=== PATIENT | male | born 1990 | race Asian ===

== ENCOUNTER 2017-04-01 00:38 | Emergency (ER) | payer OTHER ==
[2017-04-01] MEDS ORDERED: SODIUM CHLORIDE 1,000 ML IV STA (01:15)
[2017-04-01] MEDS ORDERED: ONDANSETRON 4 MG/2 ML VIAL IVPUSH ONE (01:16)
[2017-04-01] MEDS ORDERED: morphine CARPU-JECT 4 MG/1 ML DISP.SYRIN IVPUSH ONE (01:16)
[2017-04-01 01:25] VITALS: BP 138/87; PULSE 77; TEMP 98.3; BMI 25.1
[2017-04-01] MEDS ORDERED: morphine CARPU-JECT 10 MG/1 ML DISP.SYRIN ONE (01:29)
[2017-04-01 01:48] LABS: BASOPHIL 0.6 % (0-2.0); EOSINOPHIL 1.7 % (0-4.5); MCH 28.3 pg (25.7-33.7); MEAN PLT VOLUME 10.1 fl (7.5-11.1); NEUTROPHILS 50.9 % (42.8-82.8); PLATELET COUNT 246 K/MM3 (134-434); RDW 13.2 % (11.9-15.9); WHITE BLOOD COUNT 7.3 K/mm3 (4.0-10.0)
--- NOTE | 2017-04-01 02:04 | PDOC ---
History of Present Illness - General Chief Complaint: Pain Stated Complaint: LFT SIDE ABD PAIN Time Seen by Provider: 04/01/17 00:59 History Source: Patient, Family Exam Limitations: No Limitations - History of Present Illness Travel History: No Initial Comments: 04/01/17 01:58 26yo Male patient with no significant past medical history presents to ED c/o LLQ abd pain that comes and goes for past 2 months, but has been more persistent today. Patient denies n/v/d, fever, dysuria, hematuria, testicular pain/swelling, back pain, or any other complaints at this time. Associated h/a. Timing/Duration: reports: constant, getting worse Quality: reports: moderate Abdominal Pain Onset Location: reports: LLQ Pain Radiation: reports: no radiation Activities at Onset: denies: none, exertion, emotional upset, rest, sleep, no specific activity, eating, working, sexual intercourse, other Treatment Prior to Arrive: worse with: analgesics, antacids, cold pack, heat, laxative, enema, other Aggravating Factors: worse with: None, Defecation, Eating, Emotional upset, Exertion, [place], Movement, Voiding, Change in position Alleviating Factors: worse with: None, Belching, Shallow Breathing, Defecation, Eating, Holding Breath, Passing Gas, Change in Position, Rest, Voiding, Vomiting Past History - Travel Traveled outside of the country in the last 30 days: No Close contact w/someone who was outside of country & ill: No - Past Medical History Allergies/Adverse Reactions: Allergies Allergy/AdvReac Type Severity Reaction Status Date / Time No Known Allergies Allergy Verified 06/14/16 23:15 Home Medications: Ambulatory Orders Ciprofloxacin HCl [Cipro] 500 mg PO BID #20 tablet 04/01/17 Metronidazole [Flagyl -] 500 mg PO BID #20 tablet 04/01/17 Oxycodone HCl/Acetaminophen [Endocet 5-325 Tablet] 1 each PO Q6H PRN #12 tablet MDD 4 tabs 04/01/17 - Psycho/Social/Smoking Cessation Hx Anxiety: Yes Suicidal Ideation: No Smoking History: Never smoked Have you smoked in the past 12 months: No Information on smoking cessation initiated: No 'Breaking Loose' booklet given: 09/22/13 Hx Alcohol Use: No Drug/Substance Use Hx: No Substance Use Type: None Hx Substance Use Treatment: No Abd/GI Specific PMHX - Complaint Specific PMHX Colitis: No Diverticulitis: No Gall Bladder Disease: No GERD: No Hepatitis: No Irritable Bowel Synd (IBS): No Pancreatitis: No GI Ulcer Disease: No Review of Systems - Review of Systems Able to Perform ROS?: Yes Is the patient limited Italian proficient: No Constitutional: No: Chills, Fever ABD/GI: Yes: Abdominal cramping (LLQ). No: Diarrhea, Nausea, Poor Appetite, Poor Fluid Intake, Vomiting : No: Burning, Dysuria, Hematuria, Testicular Swelling, Testicular Pain Musculoskeletal: No: Back Pain Integumentary: No: Bruising, Erythema, Sweating Neurological: Yes: Headache. No: Seizure, Unsteady Gait, Dizziness All Other Systems: Reviewed and Negative *Physical Exam - Vital Signs Last Vital Signs Temp Pulse Resp BP Pulse Ox 98.3 F 77 18 138/87 98 04/01/17 00:55 04/01/17 00:55 04/01/17 00:55 04/01/17 00:55 04/01/17 00:55 - Physical Exam General Appearance: Yes: Nourished, Appropriately Dressed. No: Apparent Distress, Mild Distress, Moderate Distress, Severe Distress Respiratory/Chest: positive: Lungs Clear, Normal Breath Sounds. negative: Chest Tender, Respiratory Distress, Accessory Muscle Use, Labored Respiration, Rapid RR, Rhonchi, Stridor, Wheezing Cardiovascular: positive: Regular Rhythm, Regular Rate Gastrointestinal/Abdominal: positive: Normal Bowel Sounds, Soft, Guarding ( Involuntary guarding on deep palpation to mid abd.), Tenderness. negative: Distended, Rebound Musculoskeletal: positive: Normal Inspection. negative: CVA Tenderness Extremity: positive: Normal Capillary Refill, Normal Inspection, Normal Range of Motion. negative: Pedal Edema, Swelling, Calf Tenderness, Erythema, Inflammation Integumentary: positive: Normal Color, Dry, Warm Neurologic: positive: lorry weigher II-XII NML intact, Fully Oriented, Alert, Normal Mood/ Affect, Normal Response, Motor Strength /5 ED Treatment Course - LABORATORY CBC & Chemistry Diagram: 04/01/17 01:43 04/01/17 01:43 - ADDITIONAL ORDERS Additional order review: 04/01/17 01:43 RBC 5.51 MCV 81.0 MCHC 35.0 RDW 13.2 MPV 10.1 D Neutrophils % 50.9 Lymphocytes % 41.3 H Monocytes % 5.5 Eosinophils % 1.7 Basophils % 0.6 - RADIOLOGY Radiology Studies Ordered: Category Date Time Status ABDOMEN & PELVIS CT WITH CONTR [CT] Stat CT Scan 04/01/17 01:15 Ordered - Medications Given in the ED: ED Medications Discontinued Medications Generic Name Dose Route Start Last Admin Trade Name Freq PRN Reason Stop Dose Admin Morphine Sulfate 4 mg 04/01/17 01:16 04/01/17 01:43 Morphine Injection - IVPUSH 04/01/17 01:17 4 mg ONCE ONE Administration Ondansetron HCl 4 mg 04/01/17 01:16 04/01/17 01:43 Zofran Injection IVPUSH 04/01/17 01:17 4 mg ONCE ONE Administration *DC/Admit/Observation/Transfer Diagnosis at time of Disposition: Diverticulitis Qualifiers: Diverticulitis site: unspecified part of intestinal tract Diverticulitis bleeding: without bleeding Diverticulitis complication: without perforation or abscess Qualified Code(s): K57.92 - Diverticulitis of intestine, part unspecified, without perforation or abscess without bleeding - Discharge Dispostion Disposition: HOME Condition at time of disposition: Stable Admit: No - Prescriptions Prescriptions: Ciprofloxacin HCl [Cipro] 500 mg PO BID #20 tablet Oxycodone HCl/Acetaminophen [Endocet 5-325 Tablet] 1 each PO Q6H PRN #12 tablet MDD 4 tabs PRN Reason: Severe Pain Metronidazole [Flagyl -] 500 mg PO BID #20 tablet - Referrals Referrals: Bruce Navarro MD [Primary Care Provider] - Brenda Arzola MD [Staff Physician] - - Patient Instructions Printed Discharge Instructions: DI for Diverticulitis Additional Instructions: Follow up with Dr. Arzola (Gastroenterology). Call to schedule appointment. Take medications as prescribed. Do not drive, drink alcohol, or operate heavy machinery while taking Endocet. Avoid Alcohol, fruits or vegetables with seeds, nuts, or foods with seeds. Return if symptoms worsen or any concerns for further evaluation. Print Language: SLOVAK
[2017-04-01 02:14] LABS: ALBUMIN 4.1 g/dl (3.4-5.0); AMYLASE 57 U/L (25-115); ANION GAP 7 (8-16); BILIRUBIN,TOTAL 0.4 mg/dL (0.2-1.0); CALCIUM 9.5 mg/dL (8.5-10.1); CO2 31 mmol/L (21-32); CREATININE 0.9 mg/dL (0.7-1.3); GLUCOSE,RANDOM 107 mg/dL (74-106); SGOT/AST 23 U/L (15-37); SGPT/ALT 40 U/L (12-78); TOT PROT 7.3 g/dl (6.4-8.2)
[2017-04-01 02:15] LABS: ALK PHOS 81 U/L (45-117)
[2017-04-01 03:02] LABS: URINE APPEARANCE SLCLOUDY; URINE BILIRUBIN NEGATIVE (NEGATIVE); URINE BLOOD NEGATIVE (NEGATIVE); URINE COLOR YELLOW; URINE GLUCOSE (UA) NEGATIVE (NEGATIVE); URINE KETONE NEGATIVE (NEGATIVE); URINE LEUK ESTERASE NEGATIVE (NEGATIVE); URINE NITRITE NEGATIVE (NEGATIVE); URINE PROTEIN NEGATIVE (NEGATIVE); URINE UROBILINOGEN NEGATIVE mg/dL (0.2-1.0)
[2017-04-01] MEDS ORDERED: metroNIDAZOLE 250 MG TABLET PO ONE (04:09)
[2017-04-01] MEDS ORDERED: LEVOFLOXACIN 750 MG TABLET PO ONE (04:11)
[2017-04-01] MEDS ORDERED: LEVOFLOXACIN 250 MG TABLET (FP) ONE (04:15)
[2017-04-01] MEDS ORDERED: LEVOFLOXACIN 500 MG TABLET (FP) ONE (04:15)
[2017-04-01] MEDS ORDERED: metroNIDAZOLE 250 MG TABLET ONE (04:15)
[2017-04-01] MEDS ORDERED: LEVOFLOXACIN 750 MG TABLET PO SCH (10:00)
== END 2017-04-01 04:26 | disposition home or self-care (01) ==
LOC: JER 00:38
PROC: 3E033NZ Introduction of Analgesics, Hypnotics, Sedatives into Peripheral Vein, Percutaneous Approach (ICD-10-PCS; principal; 2017-04-01)
PROC: 3E033GC Introduction of Other Therapeutic Substance into Peripheral Vein, Percutaneous Approach (ICD-10-PCS; 2017-04-01)
DX: K57.92 Diverticulitis of intestine, part unspecified, without perforation or abscess without bleeding (principal)
CPT/HCPCS: 36415; 74177-TC; 80053; 81003; 82150; 83690; 85025; 99282-25

== ENCOUNTER 2018-07-23 02:04 | Inpatient (IN) | payer OTHER ==
--- NOTE | 2018-07-23 02:53 | PDOC ---
History of Present Illness <Minnie Realkenny - Last Filed: 07/23/18 06:07> - General History Source: Patient Exam Limitations: No Limitations - History of Present Illness Initial Comments: 07/23/18 03:02 27 year old male with no PMH presented to ED for rash to left foot, right big toe, right thumb x3 days. Pt denied fever, chills, nausea, vomiting, abdominal pain, chest pain, shortness of breath, palpitations. Pt was seen by his PCP x2 days ago, was told it was a viral infection, was prescribed Keflex 500 mg BID and to take Tylenol for pain. Pt last took Tylenol 500 mg x2 hours ago, without relief of pain. Pt denied travel out of the country. PCP: Dr. Snow <Kacy Chin - Last Filed: 07/23/18 07:02> - General Chief Complaint: Pain Stated Complaint: PAIN Time Seen by Provider: 07/23/18 02:53 Past History <Lynda Realsidra Mclean - Last Filed: 07/23/18 06:07> - Past Medical History CVA: No COPD: No DVT: No Dementia: No Diabetes: No - Surgical History Cholecystectomy: No - Suicide/Smoking/Psychosocial Hx Smoking History: Never smoked Have you smoked in the past 12 months: No Information on smoking cessation initiated: No 'Breaking Loose' booklet given: 09/22/13 Hx Alcohol Use: No Drug/Substance Use Hx: No Substance Use Type: None Hx Substance Use Treatment: No <Kacy Chin - Last Filed: 07/23/18 07:02> - Past Medical History Allergies/Adverse Reactions: Allergies Allergy/AdvReac Type Severity Reaction Status Date / Time No Known Allergies Allergy Verified 06/14/16 23:15 Home Medications: Ambulatory Orders Amoxicillin - [Amoxicillin 500mg Capsule -] 500 mg PO TID 07/23/18 Cephalexin [Keflex] 500 mg PO BID 07/23/18 Ibuprofen 800 mg PO PRN 07/23/18 Naproxen 500 mg PO BID 07/23/18 Review of Systems - Review of Systems Able to Perform ROS?: Yes Comments:: 07/23/18 03:03 General: denied fever, chills, night sweats, generalized weakness. HEENT: denied sore throat, rhinorrhea, ear pain. Heart: denied chest pain, palpitations, syncope, lower extremity swelling, diaphoresis. Respiratory: denied shortness of breath, cough, sputum production, hemoptysis. Abdomen: denied abdominal pain, nausea, vomiting, diarrhea, constipation, blood in stool. : denied dysuria, increased urinary frequency, hematuria, urinary incontinence , flank pain. Back: denied back pain. Musculoskeletal: denied joint pain, muscle pain, joint swelling. Neurological: denied headache, dizziness, numbness, tingling, weakness. Skin: admitted to [facility]. <Kacy Chin - Last Filed: 07/23/18 07:02> *Physical Exam - Vital Signs Last Vital Signs Temp Pulse Resp BP Pulse Ox 98.2 F 65 18 129/80 99 07/23/18 03:00 07/23/18 03:00 07/23/18 03:00 07/23/18 03:00 07/23/18 03:00 <RealMinnie Realkayceelaureen - Last Filed: 07/23/18 06:07> - Vital Signs Last Vital Signs Temp Pulse Resp BP Pulse Ox 98.2 F 65 18 129/80 99 07/23/18 02:22 07/23/18 02:22 07/23/18 02:22 07/23/18 02:22 07/23/18 02:22 - Physical Exam Comments: 07/23/18 03:04 Constitutional: Well-nourished, Well-developed, appearing stated age. HEENT: head is normocephalic, atraumatic. EOMI. PERRLA. Neck: supple. Full ROM. Heart: regular rhythm. no murmurs, rubs or gallops. Lungs: clear to auscultation bilaterally. no crackles, rhonchi or wheezing. no stridor. Abdomen: soft, nontender. normal bowel sounds. no rebound, guarding, masses. Extremities: Peripheral pulses intact. No lower extremity edema. Neurological: CN 2-12 grossly intact. Moves all four extremities. Psych: awake, alert, oriented x3. Follows commands. Answers questions appropriately. Skin: 8 cm ulcer with purulent material, minimal surrounding erythema to left foot. <1 cm area of dryness to right big toe. 1 cm wart like lesion to right thumb. <Kacy Chin - Last Filed: 07/23/18 07:02> Moderate Sedation - Procedure Monitoring Vital Signs: Procedure Monitoring Vital Signs Temperature 98.2 F 07/23/18 03:00 Pulse Rate 65 07/23/18 03:00 Respiratory Rate 18 07/23/18 03:00 Blood Pressure 129/80 07/23/18 03:00 O2 Sat by Pulse Oximetry (%) 99 07/23/18 03:00 <RealMinnie Vinay - Last Filed: 07/23/18 06:07> - Procedure Monitoring Vital Signs: Procedure Monitoring Vital Signs Temperature 98.2 F 07/23/18 02:22 Pulse Rate 65 07/23/18 02:22 Respiratory Rate 18 07/23/18 02:22 Blood Pressure 129/80 07/23/18 02:22 O2 Sat by Pulse Oximetry (%) 99 07/23/18 02:22 <Kacy Chin - Last Filed: 07/23/18 07:02> ED Treatment Course - LABORATORY CBC & Chemistry Diagram: 07/23/18 04:19 07/23/18 04:19 - ADDITIONAL ORDERS Additional order review: Laboratory Results 07/23/18 07/23/18 07/23/18 04:19 04:19 04:19 PT with INR 11.00 INR 0.93 PTT (Actin FS) 28.9 Sodium 139 Potassium 4.2 Chloride 104 Carbon Dioxide 27 Anion Gap 8 BUN 14 Creatinine 0.9 Creat Clearance w eGFR > 60 Random Glucose 96 Lactic Acid 1.5 Calcium 8.9 Total Bilirubin 0.4 AST 38 H ALT 67 H Alkaline Phosphatase 76 C-Reactive Protein < 0.3 Total Protein 7.4 Albumin 4.0 07/23/18 04:19 RBC 5.71 H MCV 80.8 MCHC 34.3 RDW 13.3 MPV 10.1 Neutrophils % 47.8 Lymphocytes % 41.7 H Monocytes % 7.8 Eosinophils % 1.9 Basophils % 0.8 - Medications Given in the ED: ED Medications Discontinued Medications Generic Name Dose Route Start Last Admin Trade Name Freq PRN Reason Stop Dose Admin Sodium Chloride 1,000 mls @ 1,000 mls/hr 07/23/18 03:56 07/23/18 04:23 Normal Saline - IV 07/23/18 04:55 1,000 mls/hr ASDIR STA Administration Morphine Sulfate 2 mg 07/23/18 05:25 07/23/18 05:38 Morphine Injection - IVPUSH 07/23/18 05:26 2 mg ONCE ONE Administration <Minnie Real - Last Filed: 07/23/18 06:07> - LABORATORY CBC & Chemistry Diagram: 07/23/18 04:19 07/23/18 04:19 <ElsyKacy - Last Filed: 07/23/18 07:02> Medical Decision Making - Medical Decision Making 07/23/18 03:06 27 year old male with no PMH presented to ED for rash to left foot, right thumb , right big toe. Initial Vital Signs Temp Pulse Resp BP Pulse Ox 98.2 F 65 18 129/80 99 07/23/18 02:22 07/23/18 02:22 07/23/18 02:22 07/23/18 02:22 07/23/18 02:22 Afebrile. No tachycardia. No tachypnea. No hypotension. No hypoxia on room air. Imaging ordered: XR left foot Labs ordered: CBC, CMP, blood cultures, lactate, ESR, CRP Medications ordered: morphine 4 mg EKG performed at 0619: rate 60, regular rhythm, normal axis, normal intervals, flipped T III, aVF. Pt failed outpatient antibiotics. 07/23/18 05:18 CBC WBC 6.1 K/mm3 (4.0-10.0) 07/23/18 04:19 RBC 5.71 M/mm3 (4.00-5.60) H 07/23/18 04:19 Hgb 15.8 GM/dL (11.7-16.9) 07/23/18 04:19 Hct 46.2 % (35.4-49) 07/23/18 04:19 MCV 80.8 fl (80-96) 07/23/18 04:19 MCH 27.7 pg (25.7-33.7) 07/23/18 04:19 MCHC 34.3 g/dl (32.0-35.9) 07/23/18 04:19 RDW 13.3 % (11.9-15.9) 07/23/18 04:19 Plt Count 238 K/MM3 (134-434) 07/23/18 04:19 MPV 10.1 fl (7.5-11.1) 07/23/18 04:19 Absolute Neuts (auto) 2.9 K/mm3 (1.5-8.0) 07/23/18 04:19 Neutrophils % 47.8 % (42.8-82.8) 07/23/18 04:19 Lymphocytes % 41.7 % (8-40) H 07/23/18 04:19 Monocytes % 7.8 % (3.8-10.2) 07/23/18 04:19 Eosinophils % 1.9 % (0-4.5) 07/23/18 04:19 Basophils % 0.8 % (0-2.0) 07/23/18 04:19 Nucleated RBC % 0 % (0-0) 07/23/18 04:19 CMP Sodium 139 mmol/L (136-145) 07/23/18 04:19 Potassium 4.2 mmol/L (3.5-5.1) 07/23/18 04:19 Chloride 104 mmol/L (98-107) 07/23/18 04:19 Carbon Dioxide 27 mmol/L (21-32) 07/23/18 04:19 Anion Gap 8 MMOL/L (8-16) 07/23/18 04:19 BUN 14 mg/dL (7-18) 07/23/18 04:19 Creatinine 0.9 mg/dL (0.55-1.3) 07/23/18 04:19 Creat Clearance w eGFR > 60 (>60) 07/23/18 04:19 Random Glucose 96 mg/dL (74-106) 07/23/18 04:19 Calcium 8.9 mg/dL (8.5-10.1) 07/23/18 04:19 Total Bilirubin 0.4 mg/dL (0.2-1) 07/23/18 04:19 AST 38 U/L (15-37) H 07/23/18 04:19 ALT 67 U/L (13-61) H 07/23/18 04:19 Alkaline Phosphatase 76 U/L (45-117) 07/23/18 04:19 C-Reactive Protein < 0.3 MG/DL (0.00-0.3) 07/23/18 04:19 Total Protein 7.4 g/dl (6.4-8.2) 07/23/18 04:19 Albumin 4.0 g/dl (3.4-5.0) 07/23/18 04:19 07/23/18 05:22 Vancomycin ordered. Ancef ordered. Pt to be admitted for celluliis failing out patient antibiotics. CXR: no focal infiltrate. sharp costophrenic angles. no pneumothorax. - Pending official read Keft foot XR: no obvious fractures, no subQ air. - Pending official read 07/23/18 06:12 Pt seen and evaluated by hospitalist team, recommended ED observation with ID consult. 07/23/18 07:01 <Kacy Chin - Last Filed: 07/23/18 07:02> *DC/Admit/Observation/Transfer <Minnie Real - Last Filed: 07/23/18 06:07> - Discharge Dispostion Decision to Admit order: Yes <Kacy Chin - Last Filed: 07/23/18 07:02> Diagnosis at time of Disposition: Callus of foot - Discharge Dispostion Condition at time of disposition: Stable - Referrals Referrals: ON STAFF,NOT [Primary Care Provider] -
[2018-07-23] MEDS ORDERED: SODIUM CHLORIDE 1,000 ML IV STA (03:56)
[2018-07-23 04:50] LABS: BASO % 0.8 % (0-2.0); EOS % 1.9 % (0-4.5); HEMATOCRIT 46.2 % (35.4-49); HEMOGLOBIN 15.8 GM/dL (11.7-16.9); LYMPH % 41.7 % (8-40); MCH 27.7 pg (25.7-33.7); MCHC 34.3 g/dl (32.0-35.9); MEAN CELL VOLUME 80.8 fl (80-96); MEAN PLT VOLUME 10.1 fl (7.5-11.1); MONO % 7.8 % (3.8-10.2); NEUT % 47.8 % (42.8-82.8); PLATELET COUNT 238 K/MM3 (134-434); RBC 5.71 M/mm3 (4.00-5.60); RDW 13.3 % (11.9-15.9); WHITE BLOOD COUNT 6.1 K/mm3 (4.0-10.0)
[2018-07-23 05:04] LABS: INR 0.93 (0.83-1.09)
[2018-07-23 05:07] LABS: ACTIVATED PTT 28.9 SECONDS (25.2-36.5)
[2018-07-23 05:16] LABS: ALK PHOS 76 U/L (45-117); ANION GAP 8 MMOL/L (8-16); BILIRUBIN,TOTAL 0.4 mg/dL (0.2-1); BLOOD UREA NITROGEN 14 mg/dL (7-18); CALCIUM 8.9 mg/dL (8.5-10.1); CHLORIDE 104 mmol/L (98-107); CO2 27 mmol/L (21-32); CREATININE 0.9 mg/dL (0.55-1.3); GLUCOSE,RANDOM 96 mg/dL (74-106); POTASSIUM 4.2 mmol/L (3.5-5.1); SGOT/AST 38 U/L (15-37); SGPT/ALT 67 U/L (13-61); SODIUM 139 mmol/L (136-145); TOT PROT 7.4 g/dl (6.4-8.2)
[2018-07-23] MEDS ORDERED: VANCOMYCIN 1,000 MG in DEXTROSE 5%-WATER - 250 ML IVPB ONE (05:22)
[2018-07-23] MEDS ORDERED: morphine CARPU-JECT 4 MG/1 ML DISP.SYRIN IVPUSH ONE (05:25)
[2018-07-23] MEDS ORDERED: VANCOMYCIN 1 GRAM (PRE-DOCKED) 1,000 MG/250 ML BAG IVPB ONE (05:35)
[2018-07-23] MEDS ORDERED: MORPHINE SULFATE 2 MG/ML VIAL ONE ×2 (05:35→09:22)
[2018-07-23] MEDS ORDERED: CEFAZOLIN 1 GM/D5W 1 GM/50 ML BAG IVPB ONE (05:48)
--- NOTE | 2018-07-23 05:54 | PDOC ---
Attending Attestation - Resident Resident Name: ElsyKacy - ED Attending Attestation I have performed the following: I have examined & evaluated the patient, The case was reviewed & discussed with the resident, I agree w/resident's findings & plan - HPI HPI: 07/23/18 05:50 Patient is a 27 year old male with no significant past medical history who presents to the ED with complaints of left foot callus, increased pain x 3 days , right great toe pain and right thumb lesions. Patient reports experiencing worsening dry skin/callus formation on the left side of his left foot as well as his big toe and right thumb that he states has gradually increased over time. He reports experiencing subjective fever and chills as well as being unable to ambulate secondary to left foot pain. Patient reports going to physician x2 days ago, and was prescribed antibiotics - Keflex BID x 3 days, not working. As per patient's father, patient was brought into the ED for further evaluation after medication did not appear to alleviate symptoms. Denies chest pain, Sob. Denies nausea, vomiting. Denies contact with sick individuals, out of state travelling. Denies any other symptoms. Allergies: None Social history: Lives alone. No smoking. No alcohol. No illicit drugs. Surgical history: None PMD: Not on staff. Dr Snow - Physicial Exam PE: 07/23/18 05:52 NAD, well appearing, MMM, nl conjunctiva, anicteric; neck supple. lungs clear, RRR, abdomen soft nontender. PERRY x4, no focal neuro deficits. No peripheral edema. LEft medial distal foot dry tender skin with pealing large calluses - underlying area of dry ulceration, mild erythema; Tip of right great toe as well as tip of right thumb dry tender skin with white hard callus material, WWP - Medical Decision Making 07/23/18 05:53 hpi as documented vitals wnl. no fever labs and lytes normal. inflammatory markers/lactic also normal. failing oral abx - keflex coursse IV ancef and vancomycin for mrsa coverage. admit for IV abx of infected callus wounds/unable to ambulate and unclear origin.
--- NOTE | 2018-07-23 06:37 | PN ---
Progress Note (short form) - Note Progress Note: Patient will be placed on ED obs; may come to medicine if eventually deemed needed. Briefly, he presents with skin peeling and minor redness around the base of his hallux. He has no white count, no fever, no tachycardia. Only has been on abx for 2 days as OP and doesn't appear to be frankly infected that it would require abx. Furthermore, the CRP is negative. He will remain on ED obs. I recommended that podiatry should be consulted as he has a large callus that is peeling; he may need topical antifungal, but I will defer to the current treating provider. If despite no WBC, negative CRP, no fever, etc. concern of clinically significant cellulitis is persistent ID can be called, but clinically this does not appear to be a severe infection at this juncture. I spoke to Dr. Real and the patient with the resident team present. Visit type - Emergency Visit Emergency Visit: No - New Patient This patient is new to me today: Yes Date on this admission: 07/25/18 - Critical Care Critical Care patient: No
[2018-07-23] MEDS ORDERED: CEFAZOLIN 1 GM/D5W 1 GM/50 ML BAG ONE (06:42)
--- NOTE | 2018-07-23 08:54 | PDOC ---
*Physical Exam - Vital Signs Last Vital Signs Temp Pulse Resp BP Pulse Ox 98.4 F 80 17 148/75 99 07/23/18 06:53 07/23/18 06:53 07/23/18 06:53 07/23/18 06:53 07/23/18 06:53 ED Treatment Course - LABORATORY CBC & Chemistry Diagram: 07/23/18 04:19 07/23/18 04:19 - ADDITIONAL ORDERS Additional order review: Laboratory Results 07/23/18 07/23/18 07/23/18 04:19 04:19 04:19 PT with INR 11.00 INR 0.93 PTT (Actin FS) 28.9 Sodium Potassium Chloride Carbon Dioxide Anion Gap BUN Creatinine Creat Clearance w eGFR Random Glucose Lactic Acid 1.5 Calcium Total Bilirubin AST ALT Alkaline Phosphatase C-Reactive Protein Total Protein Albumin Blood Type B POSITIVE Antibody Screen Negative 07/23/18 04:19 PT with INR INR PTT (Actin FS) Sodium 139 Potassium 4.2 Chloride 104 Carbon Dioxide 27 Anion Gap 8 BUN 14 Creatinine 0.9 Creat Clearance w eGFR > 60 Random Glucose 96 Lactic Acid Calcium 8.9 Total Bilirubin 0.4 AST 38 H ALT 67 H Alkaline Phosphatase 76 C-Reactive Protein < 0.3 Total Protein 7.4 Albumin 4.0 Blood Type Antibody Screen 07/23/18 04:19 RBC 5.71 H MCV 80.8 MCHC 34.3 RDW 13.3 MPV 10.1 Neutrophils % 47.8 Lymphocytes % 41.7 H Monocytes % 7.8 Eosinophils % 1.9 Basophils % 0.8 - Medications Given in the ED: ED Medications Discontinued Medications Generic Name Dose Route Start Last Admin Trade Name Freq PRN Reason Stop Dose Admin Sodium Chloride 1,000 mls @ 1,000 mls/hr 07/23/18 03:56 07/23/18 04:23 Normal Saline - IV 07/23/18 04:55 1,000 mls/hr ASDIR STA Administration Vancomycin HCl 1,000 mg/ 250 mls @ 166.667 mls/hr 07/23/18 05:22 07/23/18 05: 38 Dextrose IVPB 07/23/18 06:51 166.667 mls/hr ONCE ONE Administration Protocol Cefazolin Sodium 1 gm in 50 mls @ 100 mls/hr 07/23/18 05:48 07/23/18 06:46 Ancef 1 Gm Premixed Ivpb - IVPB 07/23/18 06:17 100 mls/hr ONCE ONE Administration Morphine Sulfate 2 mg 07/23/18 05:25 07/23/18 05:38 Morphine Injection - IVPUSH 07/23/18 05:26 2 mg ONCE ONE Administration Medical Decision Making - Medical Decision Making 07/23/18 08:49 I received this patient upon sign out this morning I have contacted Dr. Sandoval, he will come to see this patient I have contacted hospitalist Will are present in the ER to admit *DC/Admit/Observation/Transfer Diagnosis at time of Disposition: Callus of foot - Discharge Dispostion Condition at time of disposition: Stable - Referrals Referrals: Dr. José [Other] ON STAFF,NOT [Primary Care Provider] - - Patient Instructions - Post Discharge Activity
[2018-07-23] MEDS ORDERED: MORPHINE SULFATE 2 MG/ML VIAL IVPUSH ONE (09:04)
[2018-07-23 09:36] LABS: ERYTHROCYTE SEDIMENTATION RATE 2 mm/hr (0-10)
[2018-07-23] MEDS ORDERED: PATIENT'S OWN MEDICATION (NON-FORMULARY) (Ibuprofen [Ibuprofen] 800 MG) PO PRN (09:46)
--- NOTE | 2018-07-23 09:51 | EKG ---
Test Reason : Blood Pressure : / mmHG Vent. Rate : 060 BPM Atrial Rate : 060 BPM P-R Int : 142 ms QRS Dur : 088 ms QT Int : 408 ms P-R-T Axes : 046 010 -17 degrees QTc Int : 408 ms NORMAL SINUS RHYTHM MODERATE VOLTAGE CRITERIA FOR LVH, MAY BE NORMAL VARIANT POSSIBLE INFERIOR INFARCT , AGE UNDETERMINED LATERAL INJURY PATTERN ACUTE VA / STEMI ABNORMAL ECG WHEN COMPARED WITH ECG OF 14-JUN-2016 21:58, VENT. RATE HAS DECREASED BY 36 BPM BORDERLINE CRITERIA FOR INFERIOR INFARCT ARE NOW PRESENT T WAVE INVERSION NOW EVIDENT IN INFERIOR LEADS Confirmed by TELLY JOHN, KERRY ([id number]) on 07/23/2018 9:50:52 AM Referred By: Confirmed By:KERRY VARNER MD
--- NOTE | 2018-07-23 09:51 | EKG ---
Test Reason : Blood Pressure : / mmHG Vent. Rate : 058 BPM Atrial Rate : 058 BPM P-R Int : 148 ms QRS Dur : 088 ms QT Int : 392 ms P-R-T Axes : 038 010 019 degrees QTc Int : 384 ms SINUS BRADYCARDIA OTHERWISE NORMAL ECG WHEN COMPARED WITH ECG OF 23-JUL-2018 06:19, BORDERLINE CRITERIA FOR INFERIOR INFARCT ARE NO LONGER PRESENT ST NO LONGER DEPRESSED IN INFERIOR LEADS T WAVE INVERSION NO LONGER EVIDENT IN INFERIOR LEADS Confirmed by KERRY VARNER MD ([id number]) on 07/23/2018 9:51:19 AM Referred By: Confirmed By:KERRY VARNER MD
--- NOTE | 2018-07-23 10:34 | HP ---
CHIEF COMPLAINT: Left foot wound PCP: Bruce Navarro MD HISTORY OF PRESENT ILLNESS: 27 year old male with no specific PMH presented to the ED with a painful wound to his left foot. He also has a calloused lesion to his right thumbthat appeared 3 days ago. He reports that the lesion on his foot started as a fluid- filled blister that opened yesterday. He went to his PCP yesterday who gave him a prescription for amoxicillin and keflex which he started yesterday. Pain got progressively worse, and he believes he had a fever yesterday. Denies SOB, cough , congestion, palpitations abdominal pain, n/v/d. Upon admission to the ED VSS, labs WNL except for slightly elevated LFTs, foot x -ray negative. He was given a dose of Ancef and vancomycin, morphine for pain and 1 L NS. He report still being in a lot of pain. Recent Travel: No PAST MEDICAL HISTORY: No significant PAST SURGICAL HISTORY: None Social History: [place] nationality, moved to the [place] years ago, one year ago, lives with spouse, works in a [employer] shop Smoking: Never Alcohol: Denies Drugs: Denies Allergies No Known Allergies Allergy (Verified 06/14/16 23:15) HOME MEDICATIONS: Home Medications Medication Instructions Recorded Amoxicillin - [Amoxicillin 500mg 500 mg PO TID 07/23/18 Capsule -] Cephalexin [Keflex] 500 mg PO BID 07/23/18 Ibuprofen 800 mg PO PRN 07/23/18 Naproxen 500 mg PO BID 07/23/18 REVIEW OF SYSTEMS CONSTITUTIONAL: (+) 15 lb weight gain over the past year which he attributes to being newly , subjective fever yesterday. Absent: chills, diaphoresis, generalized weakness, malaise, loss of appetite HEENT: Absent: rhinorrhea, nasal congestion, throat pain, throat swelling, difficulty swallowing, mouth swelling, ear pain, eye pain, visual changes CARDIOVASCULAR: (+) chest pain in the ED, now resolved Absent: chest pain, syncope, palpitations, irregular heart rate, lightheadedness , peripheral edema RESPIRATORY: Absent: cough, shortness of breath, dyspnea with exertion, orthopnea, wheezing, stridor, hemoptysis GASTROINTESTINAL: Absent: abdominal pain, abdominal distension, nausea, vomiting, diarrhea, constipation, melena, hematochezia GENITOURINARY: Absent: dysuria, frequency, urgency, hesitancy, hematuria, flank pain, genital pain MUSCULOSKELETAL: (+) left foot pain Absent: myalgia, arthralgia, joint swelling, back pain, neck pain SKIN: (+) lesion on thumb and left foot Absent: rash, itching, pallor HEMATOLOGIC/IMMUNOLOGIC: Absent: easy bleeding, easy bruising, lymphadenopathy, frequent infections ENDOCRINE: Absent: unexplained weight gain, unexplained weight loss, heat intolerance, cold intolerance NEUROLOGIC: Absent: headache, focal weakness or paresthesias, dizziness, unsteady gait, seizure, mental status changes, bladder or bowel incontinence PSYCHIATRIC: Absent: anxiety, depression, suicidal or homicidal ideation, hallucinations. PHYSICAL EXAMINATION Vital Signs - 24 hr 07/23/18 07/23/18 07/23/18 02:22 03:00 06:53 Temperature 98.2 F 98.2 F 98.4 F Pulse Rate 65 Pulse Rate [ 65 80 Left Radial] Respiratory 18 18 17 Rate Blood Pressure 129/80 Blood Pressure 129/80 148/75 [Left Arm] O2 Sat by Pulse 99 99 99 Oximetry (%) GENERAL: Awake, alert, and fully oriented, in no acute distress. HEAD: Normal with no signs of trauma. EYES: Pupils equal, round and reactive to light, extraocular movements intact, sclera anicteric, conjunctiva clear. No lid lag. EARS, NOSE, THROAT: Nares patent, oropharynx clear without exudates. Moist mucous membranes. NECK: Normal range of motion, supple without lymphadenopathy, JVD, or masses. LUNGS: Breath sounds equal, clear to auscultation bilaterally. No wheezes, and no crackles. No accessory muscle use. HEART: Regular rate and rhythm, normal S1 and S2 without murmur, rub or gallop. ABDOMEN: Soft, nontender, not distended, normoactive bowel sounds, no guarding, no rebound, no masses. No hepatomegaly or splenomegaly. MUSCULOSKELETAL: Normal range of motion at all joints. No bony deformities or tenderness. No CVA tenderness. UPPER EXTREMITIES: 2+ pulses, warm, well-perfused. No cyanosis. No clubbing. No peripheral edema. LOWER EXTREMITIES: LLE > RLE, with tenderness NEUROLOGICAL: No facial droop, tongue midline, normal speech. Normal gait. PSYCHIATRIC: Cooperative. Good eye contact. Appropriate mood and affect. SKIN: (+) Rough, raised, light-colored lesion, with opening to red tissue with macerated edges around the open area over left first metarsal joint. Faint linear streak to medial aspect of LLE. extremely TTP, small, rough, round, white lesion to distal tip of right thumb. Laboratory Results - last 24 hr 07/23/18 07/23/18 07/23/18 04:19 04:19 04:19 WBC 6.1 RBC 5.71 H Hgb 15.8 Hct 46.2 MCV 80.8 MCH 27.7 MCHC 34.3 RDW 13.3 Plt Count 238 MPV 10.1 Absolute Neuts (auto) 2.9 Neutrophils % 47.8 Lymphocytes % 41.7 H Monocytes % 7.8 Eosinophils % 1.9 Basophils % 0.8 Nucleated RBC % 0 ESR 2 PT with INR 11.00 INR 0.93 PTT (Actin FS) 28.9 Sodium 139 Potassium 4.2 Chloride 104 Carbon Dioxide 27 Anion Gap 8 BUN 14 Creatinine 0.9 Creat Clearance w eGFR > 60 Random Glucose 96 Lactic Acid Calcium 8.9 Total Bilirubin 0.4 AST 38 H ALT 67 H Alkaline Phosphatase 76 Creatine Kinase Creatine Kinase Index CK-MB (CK-2) Troponin I C-Reactive Protein < 0.3 Total Protein 7.4 Albumin 4.0 Blood Type Antibody Screen 07/23/18 07/23/18 07/23/18 04:19 04:19 08:02 WBC RBC Hgb Hct MCV MCH MCHC RDW Plt Count MPV Absolute Neuts (auto) Neutrophils % Lymphocytes % Monocytes % Eosinophils % Basophils % Nucleated RBC % ESR PT with INR INR PTT (Actin FS) Sodium Potassium Chloride Carbon Dioxide Anion Gap BUN Creatinine Creat Clearance w eGFR Random Glucose Lactic Acid 1.5 Calcium Total Bilirubin AST ALT Alkaline Phosphatase Creatine Kinase 227 Creatine Kinase Index 1.1 CK-MB (CK-2) 2.6 Troponin I < 0.02 C-Reactive Protein Total Protein Albumin Blood Type B POSITIVE Antibody Screen Negative ASSESSMENT/PLAN: 27 year old male with no specific PMH presented to the ED with a painful wound to his left foot. He was placed on observation for IV antibiotic treatment and ID/podiatry consult. Lesion to left 1st metatarsal joint - Seen by ID specialist Dr. Sandoval - Will start on Zosyn. - Podiatry consult ordered - Pain management - Ibuprophen 600 PRN - Oxycodone 5 mg PRN for severe pain Prophylaxis - OOB FEN - PO intake adequate - Replete as needed - Regular diet Disp: Patient requires further inpatient obersvation Visit type - Emergency Visit Emergency Visit: Yes ED Registration Date: 07/23/18 Care time: The patient presented to the Emergency Department on the above date and was hospitalized for further evaluation of their emergent condition. - New Patient This patient is new to me today: Yes Date on this admission: 07/23/18 - Critical Care Critical Care patient: No
--- NOTE | 2018-07-23 11:17 | CON.ID ---
Consult Consult Specialty:: infectious diseases Referred by:: Linda Reason for Consultation:: swelling and redness of the foot - History of Present Illness Chief Complaint: pain swelling and redness with skin denudation of the foot History of Present Illness: 27 year old male with no specific PMH presented to the ED with a painful wound to his left foot. He also has a calloused lesion to his right thumbthat appeared 3 days ago. He reports that the lesion on his foot started as a fluid- filled blister that opened yesterday. He went to his PCP yesterday who gave him a prescription for amoxicillin and keflex which he started yesterday. Pain got progressively worse, and he believes he had a fever yesterday. Denies SOB, cough , congestion, palpitations abdominal pain, n/v/d. - History Source History Provided By: Patient Limitations to Obtaining History: No Limitations - Past Surgical History Past Surgical History: Yes: None - Alcohol/Substance Use Hx Alcohol Use: No - Smoking History Smoking history: Never smoked Have you smoked in the past 12 months: No Home Medications - Allergies Allergies/Adverse Reactions: Allergies Allergy/AdvReac Type Severity Reaction Status Date / Time No Known Allergies Allergy Verified 06/14/16 23:15 - Home Medications Home Medications: Ambulatory Orders Ibuprofen 800 mg PO PRN 07/23/18 Amox-Tr/K Cl [Augmentin 875-125mg Tablet -] 1 tab PO BID@0800,1730 #20 tablet Ibuprofen [Motrin -] 800 mg PO Q8H PRN tablet 07/25/18 Review of Systems - Review of Systems Constitutional: reports: No Symptoms Eyes: reports: No Symptoms HENT: reports: No Symptoms Neck: reports: No Symptoms Cardiovascular: reports: No Symptoms Respiratory: reports: No Symptoms Gastrointestinal: reports: No Symptoms Genitourinary: reports: No Symptoms Musculoskeletal: reports: Muscle Pain Integumentary: reports: Change in Color, Erythema, Wound Neurological: reports: No Symptoms Endocrine: reports: No Symptoms Hematology/Lymphatic: reports: No Symptoms Psychiatric: reports: No Symptoms Physical Exam Vital Signs: Vital Signs Temperature 98.0 F 07/23/18 11:00 Pulse Rate 60 07/23/18 11:00 Respiratory Rate 18 07/23/18 11:00 Blood Pressure 133/74 07/23/18 11:00 O2 Sat by Pulse Oximetry (%) 98 07/23/18 11:00 Constitutional: Yes: Well Nourished, No Distress, Calm Cardiovascular: Yes: Regular Rate and Rhythm Respiratory: Yes: Regular, CTA Bilaterally Gastrointestinal: Yes: Normal Bowel Sounds, Soft Musculoskeletal: Yes: WNL Extremities: Yes: Erythema (of the foot), Other Neurological: Yes: Alert, Oriented Psychiatric: Yes: Alert, Oriented Labs: CBC, BMP 07/23/18 04:19 07/23/18 04:19 Imaging - Results Chest X-ray: Report Reviewed, Image Reviewed X-ray: Report Reviewed, Image Reviewed Assessment/Plan cellulitis of the foot swelling of the calf pain wound on the rt toe plan vaca start patient on iv abx mri podiatry wound care rest as per the team
[2018-07-23] MEDS ORDERED: IBUPROFEN 400 MG TABLET (FP) PO PRN (12:08)
[2018-07-23] MEDS ORDERED: PIPERACILLIN/TAZOBACTAM 3.375 GM VIAL IVPB ONE ×2 (12:09→17:40)
[2018-07-23] MEDS ORDERED: DEXTROSE 5%-WATER - 50 ML IVPB ONE ×2 (12:09→17:40)
[2018-07-23] MEDS: PIPERACILLIN/TAZOB 3.375 GM 3.375 GM in DEXTROSE 5%-WATER - 50 ML IVPB SCH ×2 (12:26→17:48)
[2018-07-23] MEDS: oxyCODONE HCL 5 MG TABLET PO PRN (13:21)
[2018-07-23 14:11] VITALS: BMI 28.1
[2018-07-24] MEDS ORDERED: PIPERACILLIN/TAZOBACTAM 3.375 GM VIAL IVPB ONE ×4 (01:55→23:24)
[2018-07-24] MEDS ORDERED: DEXTROSE 5%-WATER - 50 ML IVPB ONE ×4 (01:55→23:24)
[2018-07-24] MEDS: PIPERACILLIN/TAZOB 3.375 GM 3.375 GM in DEXTROSE 5%-WATER - 50 ML IVPB SCH ×3 (02:00→17:27)
[2018-07-24 07:52] LABS: HEMATOCRIT 47.6 % (35.4-49); HEMOGLOBIN 15.9 GM/dL (11.7-16.9); MCH 27.2 pg (25.7-33.7); MCHC 33.3 g/dl (32.0-35.9); MEAN CELL VOLUME 81.5 fl (80-96); PLATELET COUNT 237 K/MM3 (134-434); RBC 5.84 M/mm3 (4.00-5.60); RDW 13.3 % (11.9-15.9); WHITE BLOOD COUNT 6.1 K/mm3 (4.0-10.0)
[2018-07-24 08:22] LABS: ANION GAP 9 MMOL/L (8-16); BLOOD UREA NITROGEN 14 mg/dL (7-18); CALCIUM 9.1 mg/dL (8.5-10.1); CHLORIDE 106 mmol/L (98-107); CO2 25 mmol/L (21-32); GLUCOSE,RANDOM 91 mg/dL (74-106); POTASSIUM 4.5 mmol/L (3.5-5.1); SODIUM 139 mmol/L (136-145)
--- NOTE | 2018-07-24 10:31 | CONSULT ---
Consult Consult Specialty:: Podiatry Reason for Consultation:: Wound medial left big toe, +macerated, -drainage today , +localized cellulitis, +lesion on finger right thumb consistent with verrucca - History of Present Illness Chief Complaint: wound left big toe states only present since Saturday. - History Source History Provided By: Patient Limitations to Obtaining History: Language Barrier - Past Surgical History Past Surgical History: Yes: None - Alcohol/Substance Use Hx Alcohol Use: No - Smoking History Smoking history: Never smoked Have you smoked in the past 12 months: No Home Medications - Allergies Allergies/Adverse Reactions: Allergies Allergy/AdvReac Type Severity Reaction Status Date / Time No Known Allergies Allergy Verified 06/14/16 23:15 - Home Medications Home Medications: Ambulatory Orders Ibuprofen 800 mg PO PRN 07/23/18 Physical Exam Vital Signs: Vital Signs Temperature 97.4 F L 07/24/18 06:00 Pulse Rate 56 L 07/24/18 06:00 Respiratory Rate 20 07/24/18 06:00 Blood Pressure 116/73 07/24/18 06:00 O2 Sat by Pulse Oximetry (%) 98 07/24/18 01:00 Extremities: Yes: Other (Wound medial left big toe, +macerated, -drainage today , +localized cellulitis, +lesion on finger right thumb consistent with verrucca) Labs: CBC, BMP 07/24/18 06:00 07/24/18 06:00 Assessment/Plan wound left big toe Betadine dressing change daily. MRI ordered. Will follow.
--- NOTE | 2018-07-24 12:51 | PN ---
Progress Note, Physician History of Present Illness: stable leg improving podiatry note noted - Current Medication List Current Medications: Active Medications Piperacillin Sod/Tazobactam (Sod 3.375 gm/ Dextrose) 50 mls @ 100 mls/hr IVPB Q8H-IV JUSTIN; Protocol Last Admin: 07/24/18 10:21 Dose: 100 mls/hr Ibuprofen (Motrin -) 800 mg PO Q8H PRN PRN Reason: PAIN LEVEL 4 - 6 Oxycodone HCl (Roxicodone -) 5 mg PO Q6H PRN PRN Reason: PAIN LEVEL 6-10 Last Admin: 07/23/18 13:21 Dose: 5 mg - Objective Vital Signs: Vital Signs Temperature 97.4 F L 07/24/18 06:00 Pulse Rate 56 L 07/24/18 06:00 Respiratory Rate 20 07/24/18 06:00 Blood Pressure 116/73 07/24/18 06:00 O2 Sat by Pulse Oximetry (%) 98 07/24/18 01:00 Constitutional: Yes: No Distress, Calm Cardiovascular: Yes: Regular Rate and Rhythm Respiratory: Yes: Regular, CTA Bilaterally Gastrointestinal: Yes: Normal Bowel Sounds, Soft Musculoskeletal: Yes: WNL Extremities: Yes: Other Neurological: Yes: Alert, Oriented Psychiatric: Yes: Alert, Oriented Labs: CBC, BMP 07/24/18 06:00 07/24/18 06:00 INR, PTT INR 0.93 (0.83-1.09) 07/23/18 04:19 - ....Imaging MRI: Report Reviewed, Image Reviewed Assessment/Plan cellulitis of the foot swelling of the calf pain wound on the rt toe plan continue abx mri result noted podiatry wound care rest as per the team
[2018-07-24] MEDS: oxyCODONE HCL 5 MG TABLET PO PRN (15:47)
--- NOTE | 2018-07-24 23:24 | PN ---
Progress Note, Physician History of Present Illness: No new complaints - Current Medication List Current Medications: Active Medications Piperacillin Sod/Tazobactam (Sod 3.375 gm/ Dextrose) 50 mls @ 100 mls/hr IVPB Q8H-IV JUSTIN; Protocol Last Admin: 07/24/18 17:27 Dose: 100 mls/hr Ibuprofen (Motrin -) 800 mg PO Q8H PRN PRN Reason: PAIN LEVEL 4 - 6 Oxycodone HCl (Roxicodone -) 5 mg PO Q6H PRN PRN Reason: PAIN LEVEL 6-10 Last Admin: 07/24/18 15:47 Dose: 5 mg - Objective Vital Signs: Vital Signs Temperature 98.2 F 07/24/18 22:00 Pulse Rate 68 07/24/18 22:00 Respiratory Rate 18 07/24/18 22:00 Blood Pressure 123/80 07/24/18 22:00 O2 Sat by Pulse Oximetry (%) 98 07/24/18 21:00 Labs: CBC, BMP 07/24/18 06:00 07/24/18 06:00 INR, PTT INR 0.93 (0.83-1.09) 07/23/18 04:19
[2018-07-25] MEDS: PIPERACILLIN/TAZOB 3.375 GM 3.375 GM in DEXTROSE 5%-WATER - 50 ML IVPB SCH ×2 (01:29→09:58)
[2018-07-25] MEDS ORDERED: PIPERACILLIN/TAZOBACTAM 3.375 GM VIAL IVPB ONE (09:49)
[2018-07-25] MEDS ORDERED: DEXTROSE 5%-WATER - 50 ML IVPB ONE (09:49)
--- NOTE | 2018-07-25 12:13 | PN ---
Progress Note (short form) - Note Progress Note: FUV left big toe. Patient complaining about acute left calf pain. vvs tmax 98.0f +improved wound left big toe. +tender calf upon palpation left, -cellulitis, improved cellulitis wound left big toe r/o dvt If pt has no dvt can be dc to home. Follow up in [facility]. daily betadine dressing change at home. Abx as per ID.
--- NOTE | 2018-07-25 12:43 | PN ---
Progress Note, Physician History of Present Illness: saman doing well no new issues podiatry note noted comfortable swelling better - Current Medication List Current Medications: Active Medications Piperacillin Sod/Tazobactam (Sod 3.375 gm/ Dextrose) 50 mls @ 100 mls/hr IVPB Q8H-IV JUSTIN; Protocol Last Admin: 07/25/18 09:58 Dose: 100 mls/hr Ibuprofen (Motrin -) 800 mg PO Q8H PRN PRN Reason: PAIN LEVEL 4 - 6 Oxycodone HCl (Roxicodone -) 5 mg PO Q6H PRN PRN Reason: PAIN LEVEL 6-10 Last Admin: 07/24/18 15:47 Dose: 5 mg - Objective Vital Signs: Vital Signs Temperature 98.0 F 07/25/18 06:00 Pulse Rate 57 L 07/25/18 06:00 Respiratory Rate 18 07/25/18 06:00 Blood Pressure 113/62 07/25/18 06:00 O2 Sat by Pulse Oximetry (%) 98 07/24/18 21:00 Constitutional: Yes: No Distress, Calm Neck: Yes: Supple, Trachea Midline Cardiovascular: Yes: Regular Rate and Rhythm Respiratory: Yes: Regular, CTA Bilaterally Gastrointestinal: Yes: Normal Bowel Sounds, Soft Musculoskeletal: Yes: Other Extremities: Yes: Other (swelling of the leg and cellulitis improved) Wound/Incision: Yes: Other Neurological: Yes: Alert, Oriented Psychiatric: Yes: Alert, Oriented Labs: CBC, BMP 07/24/18 06:00 07/24/18 06:00 INR, PTT INR 0.93 (0.83-1.09) 07/23/18 04:19 Assessment/Plan cellulitis of the foot swelling of the calf pain wound on the rt toe plan continue current mgmt will change to oral abx rest continue current mgmt wound care as per the team
[2018-07-25] MEDS: AMOX TR/POT CLAV 875MG/125MG TABLETS (FP) PO SCH (17:13)
--- NOTE | 2018-07-25 23:12 | PN ---
Progress Note, Physician - Current Medication List Current Medications: Active Medications Amoxicillin/Clavulanate Potassium (Augmentin - 875mg Tablet) 1 tab PO BID@0800, 1730 JUSTIN Last Admin: 07/25/18 17:13 Dose: 1 tab Ibuprofen (Motrin -) 800 mg PO Q8H PRN PRN Reason: PAIN LEVEL 4 - 6 Last Admin: 07/25/18 18:25 Dose: 800 mg Oxycodone HCl (Roxicodone -) 5 mg PO Q6H PRN PRN Reason: PAIN LEVEL 6-10 Last Admin: 07/24/18 15:47 Dose: 5 mg - Objective Vital Signs: Vital Signs Temperature 98.2 F 07/25/18 17:26 Pulse Rate 58 L 07/25/18 17:26 Respiratory Rate 20 07/25/18 17:26 Blood Pressure 113/69 07/25/18 17:26 O2 Sat by Pulse Oximetry (%) 100 07/25/18 21:00 Labs: CBC, BMP 07/24/18 06:00 07/24/18 06:00 INR, PTT INR 0.93 (0.83-1.09) 07/23/18 04:19
[2018-07-25] MEDS: oxyCODONE HCL 5 MG TABLET PO PRN (23:23)
[2018-07-26] MEDS: AMOX TR/POT CLAV 875MG/125MG TABLETS (FP) PO SCH (08:45)
[2018-07-26 09:55] VITALS: BP 126/66; PULSE 87; TEMP 98.1
== END 2018-07-26 12:28 | disposition home or self-care (01) | DRG 383 ==
LOC: JER 02:04 → JERBED 05:23 → J8W 11:05 → OBSVTOIN 12:54
PROVIDERS: ADMIT Internal Medicine; ATTEND Internal Medicine
DX: L03.116 Cellulitis of left lower limb (principal); L84 Corns and callosities; S91.109A Unspecified open wound of unspecified toe(s) without damage to nail, initial encounter; T14.90XA Injury, unspecified, initial encounter; X58.XXXA Exposure to other specified factors, initial encounter; Y93.9 Activity, unspecified; Y92.89 Other specified places as the place of occurrence of the external cause; Y99.9 Unspecified external cause status
CPT/HCPCS: 36415; 71046-TC-FY; 73630-TC-LT; 73718-LT; 80048; 80053; 82550; 82553; 83605; 84484; 85025; 85027; 85610; 85651; 85730; 86140; 86850; 86900; 86901; 87040; 93005; 93010; 93971-TC; 99285-25; G0378; J7030